=== PATIENT | female | born 1990 | race African-American/Black ===

== ENCOUNTER 2022-01-25 07:44 | Inpatient (IN) ==
[2022-01-25 08:11] LABS: Basophils % 0.2 % (0.0-0.8); Eosinophils # 0.2 10*3/uL (0.0-0.87); Eosinophils % 2.2 % (0.00-10.9); Hematocrit 33.9 VOL% (35.7-47.0); Immature Granulocytes % 0.4 %; Immature Granulocytes Absolute 0.04 #; Lymphocytes # 3.7 10*3/uL (1.4-4.0); Lymphocytes % 36.5 % (21.3-54.2); Mean Corpuscular HGB Conc 32.4 GM/DL (32-36); Mean Corpuscular Volume 88.1 FL (87-102); Mean Platelet Volume 9.7 FL (9.6-12.0); Monocytes # 0.5 10*3/uL (0.11-0.8); Monocytes % 4.4 % (1.7-12.7); Neutrophils % 56.3 % (38.7-73.9); Platelet Count 349 T/CUMM (130-400); Red Blood Count 3.85 MC/CUMM (3.8-5.5); Red Cell Distribution Width 14.9 % (9.3-17.3); White Blood Count 10.1 T/CUMM (4-12)
[2022-01-25] MEDS ORDERED: HYDROmorphone 1 MG/1 ML SYRINGE IV STA (08:18)
[2022-01-25] MEDS ORDERED: ONDANSETRON 4 MG/2 ML VIAL IV STA (08:18)
[2022-01-25] MEDS ORDERED: SODIUM CHLORIDE 0.9% 1,000 ML IV STA (08:18)
[2022-01-25 08:30] LABS: Albumin 3.2 G/DL (3.4-5.0); Bilirubin,Total 0.5 MG/DL (0.20-1.00); Calcium 8.4 MG/DL (8.5-10.1); Osmolality,Calculated 282.4 MOS/KG (273-304); Potassium 3.9 MMOL/L (3.5-5.1); Total Protein 6.7 G/DL (6.4-8.2)
[2022-01-25] MEDS ORDERED: LIDOCAINE 2% 5 ML VIAL ONE (10:06)
[2022-01-25] MEDS ORDERED: MIDAZOLAM 2 MG/2 ML VIAL ONE (10:06)
[2022-01-25] MEDS ORDERED: fentaNYL 100 MCG/2 ML VIAL ONE ×2 (10:06→11:11)
[2022-01-25] MEDS ORDERED: DEXAMETHASONE 4 MG/1 ML VIAL ONE (10:06)
[2022-01-25] MEDS ORDERED: propofoL 200 MG/20 ML VIAL IV ONE ×2 (10:06→11:41)
[2022-01-25] MEDS ORDERED: ROCURONIUM 50 MG/5 ML VIAL IV ONE (10:06)
[2022-01-25] MEDS ORDERED: FAMOTIDINE 20 MG/2 ML VIAL IV ONE (10:26)
[2022-01-25] MEDS ORDERED: SUCCINYLCHOLINE 200 MG/10 ML VIAL ONE (10:26)
[2022-01-25] MEDS ORDERED: PHENYLEPHRINE 10 MG/1 ML VIAL IV ONE (11:06)
[2022-01-25] MEDS ORDERED: CLINDAMYCIN INJ 900 MG/50 ML PREMIX IV ONE (11:21)
[2022-01-25] MEDS ORDERED: SUGAMMADEX 200 MG/2 ML VIAL IV ONE (11:32)
[2022-01-25] MEDS ORDERED: TISSUE ADHESIVE 1 EACH APPLICATOR TOP ONE (11:36)
[2022-01-25] MEDS ORDERED: ONDANSETRON 4 MG/2 ML VIAL ONE (11:40)
[2022-01-25] MEDS ORDERED: DESFLURANE 1 UNIT/15 MINUTE INH ONE (11:40)
[2022-01-25] MEDS ORDERED: ONDANSETRON 4 MG/2 ML VIAL IV PRN (12:15)
[2022-01-25] MEDS: HYDROmorphone 1 MG/1 ML SYRINGE IV PRN ×4 (12:20→13:04)
[2022-01-25] MEDS ORDERED: MORPHINE 2 MG/1 ML SYRINGE IV ONE (14:56)
[2022-01-25] MEDS ORDERED: ONDANSETRON 4 MG/2 ML VIAL IV ONE (14:56)
[2022-01-25 17:12] VITALS: BP 101/52
[2022-01-25] MEDS ORDERED: SIMETHICONE CHEW 80 MG TABLET PO PRN (17:26)
== END 2022-01-25 18:45 | disposition home or self-care (01) | DRG 547 ==
LOC: N.ED 07:44 → N.EDINP 09:10 → N.OB 10:14
PROVIDERS: ADMIT Obstetrics & Gynecology; ATTEND Obstetrics & Gynecology